=== PATIENT | male | born 1930 | race Caucasian/White ===

== ENCOUNTER → 2017-11-29 | Outpatient (CLI) | payer OTHER ==
[~2017-11-29] MED LIST: AMBEREN; AMOXICILLIN 50500 M1 PO; ARICEPT 5 MG TAB5 MG PO; ASA5UEC PO; ASPIRIN EC325 M1 PO; BACTROBAN NASAL1 GM; CALCIUM OYSTER500 MG PO; COUMADIN 5 MG TA5 M1 PO; GOLDEN SEAL PO; HAWTHORNE250 MG PO; LORTAB 5 MG/5001 TA1 PO; MULTIVITAMINS PO; NOHOMEMEDICATIONS; NORCO 5-325 TA1 EACH PO; OLOPATADINE HC2.5 ML OPHTHALMIC; PACERONE 200 M200 MG PO; PENICILLIN VK500 M1 PO; PERCOCET 5-3251 EACH PO; PHISOHEX148 ML; PROBIOTIC1 EAC1 PO; PROTONIX 20 MG20 M1 PO; SENNA PO; SLOW FE 160MG160 MG PO; TUMS PO; UNICOMPLEX M TA1 TA1 PO; VITAMINC500 PO; [UNRECOGNIZED DRUG - OTHER] PO; [UNRECOGNIZED DRUG - OTHER] PO
[2017-11-29 09:36] VITALS: BP 150/82
== END ==
LOC: SEN 08:25
DX: Z09 Encounter for follow-up examination after completed treatment for conditions other than malignant neoplasm (principal); R06.02 Shortness of breath

== ENCOUNTER → 2017-12-17 | Outpatient (CLI) | payer OTHER | LOC: RAD 14:24 | DX: R06.02 Shortness of breath (principal); E11.9 Type 2 diabetes mellitus without complications ==

== ENCOUNTER → 2018-01-18 | Outpatient (CLI) | payer OTHER | LOC: CAT 09:38 | DX: J84.10 Pulmonary fibrosis, unspecified (principal); R91.8 Other nonspecific abnormal finding of lung field ==

== ENCOUNTER → 2018-01-23 | Outpatient (CLI) | payer OTHER ==
[~2018-01-23] MED LIST changes: +INCRUSE ELLI62.5 MCG INH; +PROAIR HFA8.5 GM INH
[2018-01-23 09:50] VITALS: BP 156/78
[2018-01-23 13:30] LABS: URINE BILIRUBIN NEGATIVE (Negative); URINE BLOOD NEGATIVE (Negative); URINE CLARITY CLEAR; URINE COLOR YELLOW; URINE GLUCOSE-RANDOM* NEGATIVE (Negative); URINE KETONES NEGATIVE (Negative); URINE LEUKOCYTES-REFLEX NEGATIVE (Negative); URINE NITRITE-REFLEX NEGATIVE (Negative); URINE PROTEIN (DIPSTICK) NEGATIVE (Negative); URINE UROBILINOGEN 0.2 E.U./dl (0.2-1.0)
[2018-01-23 13:32] LABS: ABSOLUTE NEUTROPHILS 4.4 thou/uL (1.4-8.2); BASOPHILS 0.4 % (0.0-2.0); HEMATOCRIT 48.6 % (42.0-52.0); HEMOGLOBIN 16.4 gm/dL (14.0-18.0); LYMPHOCYTES 17.1 % (24.0-44.0); MCH 30.1 pg (26.0-34.0); MCHC 33.8 g/dL (28.0-37.0); MCV 89.2 fL (80.0-100.0); MONOCYTES 11.1 % (1.0-8.0); PLATELET COUNT 193 thou/uL (150-400); POLYS 69.4 % (36.0-66.0); RBC 5.45 mil/uL (4.50-6.00); RDW 15.6 % (10.5-14.5); WBC 6.4 thou/uL (4.0-11.0)
[2018-01-23 13:47] LABS: ALBUMIN 3.6 g/dL (3.4-5.0); ANION GAP 10 mmol/L (7-16); BUN 31 mg/dL (7-18); CALCIUM 8.6 mg/dL (8.5-10.1); CHLORIDE 104 mmol/L (98-107); CHOLESTEROL 170 mg/dL (<200); CO2 27 mmol/L (21-32); CREATININE 1.6 mg/dL (0.7-1.3); GLUCOSE 98 mg/dL (74-106); HDL CHOLESTEROL 60 mg/dL (>40); LDL CHOLESTEROL 73 mg/dL (<100); MAGNESIUM 2.1 mg/dL (1.8-2.4); POTASSIUM 4.2 mmol/L (3.5-5.1); SGOT 23 U/L (15-37); SGPT 30 U/L (30-65); SODIUM 141 mmol/L (136-145); TC:HDL 2.8 Ratio (Not establshd); TOTAL BILIRUBIN 0.9 mg/dL (<0.1-1.0); TOTAL PROTEIN 6.9 g/dL (6.4-8.2); TRIGLYCERIDE 188 mg/dL (<150); VLDL 38 mg/dL (<40)
[2018-01-23 14:13] LABS: TSH 1.261 uIU/mL (0.358-3.740)
[2018-01-23 21:10] LABS: GLYCOHEMOGLOBIN (HGB A1C) 5.8 % (4.8-5.6)
== END ==
LOC: SEN 08:55
PROVIDERS: Nurse Practitioner Family
DX: Z09 Encounter for follow-up examination after completed treatment for conditions other than malignant neoplasm (principal); F03.90 Unspecified dementia, unspecified severity, without behavioral disturbance, psychotic disturbance, mood disturbance, and anxiety; J44.9 Chronic obstructive pulmonary disease, unspecified; R41.89 Other symptoms and signs involving cognitive functions and awareness; I25.10 Atherosclerotic heart disease of native coronary artery without angina pectoris; K21.9 Gastro-esophageal reflux disease without esophagitis; I10 Essential (primary) hypertension; E11.9 Type 2 diabetes mellitus without complications